=== PATIENT | male | born 1955 | race Caucasian/White ===

== ENCOUNTER 2018-10-24 17:28 | Inpatient (IN) | payer BC ==
[~2018-10-24] VITALS: Ht 188 cm; Wt 102.7 kg
--- NOTE | 2018-10-24 17:55 | NUR ---
SEE TRIAGE NOTE. EKG COMPLETED ON ARRIVAL. PT PLACED ON HEART MONITOR, BP CUFF, PULSE OX. CALL LIGHT WITHIN REACH.
[2018-10-24] MEDS ORDERED: SODIUM CHLORIDE FLUSH 10ML SYR IVF ONE (18:00)
--- NOTE | 2018-10-24 18:23 | NUR ---
PT UPDATED ON POC. IV PLACED, LABS DRAWN WITH START INCLUDING TYPE AND SCREEN WITNESSED BY LAB. PT WITHOUT COMPLAINT, LIGHTS DIMMED, CALL LIGHT WITHIN REACH.
[2018-10-24 18:40] LABS: BASOPHILS # (AUTO) 0.04 x10^3/uL (0-0.1); BASOPHILS % (AUTO) 0 % (0-1); EOSINOPHILS # (AUTO) 0.19 x10^3/uL (0-0.4); EOSINOPHILS % (AUTO) 2 % (1-7); LYMPHOCYTES # (AUTO) 1.44 x10^3/uL (1-3.4); LYMPHOCYTES % (AUTO) 17 % (22-44); MD NO; MEAN CORPUSCULAR HEMOGLOBIN 32.5 pg (27.5-34.5); MEAN CORPUSCULAR HGB CONC 33.3 g/dL (33.2-36.2); MEAN CORPUSCULAR VOLUME 97.7 fL (81-97); MONOCYTES # (AUTO) 0.92 x10^3/uL (0.2-0.8); MONOCYTES % (AUTO) 11 % (2-9); NEUTROPHILS % (AUTO) 70 % (42-75); PLATELET COUNT 291 x10^3/uL (130-400); RED BLOOD COUNT 4.84 x10^6/uL (4.38-5.82); RED CELL DISTRIBUTION WIDTH 14.4 % (9.4-14.8)
[2018-10-24 18:50] LABS: INTERNATIONAL NORMALIZED RATIO 1.05 (0.93-1.1)
[2018-10-24 18:51] LABS: CHLORIDE 105 mmol/L (98-107)
[2018-10-24 18:52] LABS: ALBUMIN 3.9 g/dL (3.4-5.0); ANION GAP 8 mmol/L (5-15)
[2018-10-24] MEDS ORDERED: OMEG-123 PO (18:58)
[2018-10-24] MEDS ORDERED: ATOR40TA78 PO (18:58)
[2018-10-24] MEDS ORDERED: CARV12.543 PO (18:58)
[2018-10-24] MEDS ORDERED: ASPI-496 PO (18:58)
[2018-10-24] MEDS ORDERED: METH5TAB6 PO (18:58)
[2018-10-24] MEDS ORDERED: FURO20TA3 PO (18:58)
[2018-10-24] MEDS ORDERED: LISI-170 PO (18:58)
[2018-10-24] MEDS ORDERED: RIVA20TA PO (18:59)
--- NOTE | 2018-10-24 19:00 | NUR ---
REPORT TO ANITHA LAYNE, TRANSFER OF CARE AT THIS TIME.
[2018-10-24] MEDS ORDERED: CALC168T7 PO (19:01)
[2018-10-24] MEDS ORDERED: ACET325T14 PO (19:01)
--- NOTE | 2018-10-24 19:04 | NUR ---
PT TO CT SCAN AT THIS TIME. NAD.
[2018-10-24] MEDS ORDERED: OMNIPAQUE 350 MG/ML, 100ML BOTTLE ONE (19:17)
--- NOTE | 2018-10-24 19:25 | NUR ---
PT RETURNED FROM CT SCAN. CALL LIGHT WITHIN REACH. PT DENIES ANY NEEDS AT THIS TIME. UPDATED ON PLAN OF CARE.
[2018-10-24 21:22] VITALS: BP 122/65
[2018-10-24] MEDS ORDERED: GOLYTELY 4,000ML ORAL.SOL PO ONE (22:00)
[2018-10-25] MEDS: NICOTINE 21 MG/24 HR PATCH.TD24 TD SCH ×2 (00:30→21:00)
[2018-10-25] MEDS ORDERED: ONDANSETRON 2MG/ML, 2ML IVPush PRN (00:30)
[2018-10-25] MEDS ORDERED: ENALAPRILAT 1.25 MG/ML, 2ML IVPush PRN (00:30)
[2018-10-25] MEDS ORDERED: LIDODERM 5% PATCH TD PRN (00:30)
[2018-10-25 02:33] VITALS: BP 120/71
[2018-10-25 05:55] LABS: BASOPHILS # (AUTO) 0.06 x10^3/uL (0-0.1); BASOPHILS % (AUTO) 1 % (0-1); EOSINOPHILS % (AUTO) 4 % (1-7); LYMPHOCYTES # (AUTO) 1.93 x10^3/uL (1-3.4); LYMPHOCYTES % (AUTO) 25 % (22-44); MD NO; MEAN CORPUSCULAR HEMOGLOBIN 32.2 pg (27.5-34.5); MEAN CORPUSCULAR VOLUME 97.6 fL (81-97); MEAN PLATELET VOLUME 7.8 fL (7.4-10.4); MONOCYTES # (AUTO) 0.87 x10^3/uL (0.2-0.8); MONOCYTES % (AUTO) 11 % (2-9); NEUTROPHILS % (AUTO) 60 % (42-75); PLATELET COUNT 266 x10^3/uL (130-400); RED CELL DISTRIBUTION WIDTH 14.4 % (9.4-14.8)
[2018-10-25 06:07] LABS: ANION GAP 9 mmol/L (5-15); CALCIUM 8.4 mg/dL (8.5-10.1); CHLORIDE 107 mmol/L (98-107)
[2018-10-25 06:08] LABS: CREATININE 0.92 mg/dL (0.7-1.3)
[2018-10-25] MEDS ORDERED: SPIR25TA5 PO (06:39)
[2018-10-25 07:30] VITALS: BP 125/72
[2018-10-25] MEDS: CARVEDILOL 12.5 MG TABLET PO SCH ×2 (07:48→21:53)
[2018-10-25] MEDS: FUROSEMIDE 40 MG TABLET PO SCH (07:50)
[2018-10-25] MEDS: OMEGA-3/FISH OIL CAPSULE PO SCH (07:50)
[2018-10-25] MEDS: LISINOPRIL 40 MG TABLET PO SCH (07:50)
[2018-10-25] MEDS: METHIMAZOLE 5 MG TAB PO SCH (07:51)
[2018-10-25] MEDS ORDERED: DIPHENHYDRAMINE 50 MG/ML, 1ML IVPush ONE (08:00)
[2018-10-25] MEDS ORDERED: PROPOFOL 10 MG/ML, 20ML ONE (12:59)
[2018-10-25] MEDS ORDERED: PROMETHAZINE 25 MG/ML, 1ML IV PRN (14:00)
[2018-10-25] MEDS ORDERED: MORPHINE SULFATE 4 MG/ML, 1ML IVPush PRN (14:00)
[2018-10-25] MEDS ORDERED: MEPERIDINE/PF 25MG/0.5ML IVPush PRN (14:00)
[2018-10-25] MEDS ORDERED: ALBUTEROL SULFATE 2.5 MG/3 ML NPPB PRN (14:00)
[2018-10-25] MEDS ORDERED: HALOPERIDOL 5 MG/ML IV PRN (14:00)
[2018-10-25] MEDS ORDERED: ONDANSETRON ODT 8 MG PO PRN (14:00)
[2018-10-25] MEDS ORDERED: LABETALOL 5MG/ML, 20ML IV PRN (14:00)
[2018-10-25] MEDS ORDERED: EPHEDRINE 50 MG/ML, 1ML IVPush PRN (14:00)
[2018-10-25] MEDS ORDERED: HYDROmorphone 2 MG/ML, 1ML IVPush PRN (14:00)
[2018-10-25] MEDS ORDERED: PROMETHAZINE 12.5 MG SUPP PR PRN (14:00)
[2018-10-25] MEDS ORDERED: ONDANSETRON 2MG/ML, 2ML IV PRN (14:00)
[2018-10-25] MEDS ORDERED: MIDAZOLAM 1 MG/ML, 2ML IV PRN (14:00)
[2018-10-25] MEDS ORDERED: FENTANYL PF 100 MCG/2ML IV PRN (14:00)
[2018-10-25] MEDS ORDERED: hydrALAzine 20 MG/ML, 1ML IV PRN (14:00)
[2018-10-25] MEDS ORDERED: DIAZEPAM 5 MG/ML, 2ML IVPush PRN (14:00)
[2018-10-25] MEDS ORDERED: OXYcodone 5 MG/5 ML ORAL.SOL UDC PO PRN (14:00)
[2018-10-25 14:32] VITALS: BP 123/78
[2018-10-25 19:03] VITALS: BP 110/63
[2018-10-25] MEDS ORDERED: ATORVASTATIN 40 MG TABLET PO SCH (21:00)
[2018-10-26 02:06] VITALS: BP 107/76
[2018-10-26 07:20] VITALS: BP 112/68
[2018-10-26] MEDS: LISINOPRIL 40 MG TABLET PO SCH (08:28)
[2018-10-26] MEDS: CARVEDILOL 12.5 MG TABLET PO SCH (08:28)
[2018-10-26] MEDS: FUROSEMIDE 40 MG TABLET PO SCH (08:28)
[2018-10-26] MEDS: METHIMAZOLE 5 MG TAB PO SCH (08:28)
[2018-10-26] MEDS: OMEGA-3/FISH OIL CAPSULE PO SCH (08:28)
[2018-10-26] MEDS ORDERED: DIPHENHYDRAMINE/ZINC CRM 2%, 30GM TP PRN (08:30)
[2018-10-26] MEDS ORDERED: DIPH28.44 TP (08:48)
== END 2018-10-26 13:35 | disposition home or self-care (01) | DRG 378 ==
LOC: ED 20:31 → EDIP 20:35 → 3NW 21:19 → DCLOUNGE 10-26 13:22
PROVIDERS: ADMIT Internal Medicine; ATTEND Internal Medicine
PROC: 0DBP8ZZ Excision of Rectum, Via Natural or Artificial Opening Endoscopic (ICD-10-PCS; 2018-10-25)
PROC: 0DBH8ZZ Excision of Cecum, Via Natural or Artificial Opening Endoscopic (ICD-10-PCS; principal; 2018-10-25 13:00)
DX: K57.31 Diverticulosis of large intestine without perforation or abscess with bleeding (principal); D68.69 Other thrombophilia; F17.210 Nicotine dependence, cigarettes, uncomplicated; I11.0 Hypertensive heart disease with heart failure; I44.7 Left bundle-branch block, unspecified; I48.91 Unspecified atrial fibrillation; I50.9 Heart failure, unspecified; K40.20 Bilateral inguinal hernia, without obstruction or gangrene, not specified as recurrent; K52.9 Noninfective gastroenteritis and colitis, unspecified; K62.1 Rectal polyp; K76.0 Fatty (change of) liver, not elsewhere classified; Z79.01 Long term (current) use of anticoagulants; Z79.82 Long term (current) use of aspirin; Z80.3 Family history of malignant neoplasm of breast; Z86.73 Personal history of transient ischemic attack (TIA), and cerebral infarction without residual deficits; Z95.0 Presence of cardiac pacemaker; D12.0 Benign neoplasm of cecum; Z90.49 Acquired absence of other specified parts of digestive tract; Z88.8 Allergy status to other drugs, medicaments and biological substances
CPT/HCPCS: 36415; 74177; 80048; 82040; 85025; 85610; 85730; 86850; 86900; 88305; 93005; 99285; G0378; J2704; Q9967; J1200